=== PATIENT | female | born 1965 | race Caucasian/White ===

== ENCOUNTER 2017-10-26 17:20 | Emergency (ER) | payer OTHER, MEDICAID ==
[~2017-10-26 17:20] MED LIST: BUTACAP7; IBUP600T27; TRAZ100T2; VENL75CA78
[2017-10-26 17:35] VITALS: BP 170/82
[2017-10-26] MEDS ORDERED: IPRATROPIUM BROM 0.5 MG/2.5ML INH SOL NEB ONE (21:30)
[2017-10-26] MEDS ORDERED: ALBUTEROL SULF 2.5 MG/0.5ML(0.5%) NEB SOLN NEB ONE (21:30)
== END 2017-10-26 22:11 | disposition home or self-care (01) ==
LOC: EDBD 17:20 → ER 17:20
DX: J40 Bronchitis, not specified as acute or chronic (principal); Z90.49 Acquired absence of other specified parts of digestive tract
CPT/HCPCS: 71046; 94640

== ENCOUNTER 2017-10-31 12:40 | Emergency (ER) | payer OTHER, MEDICAID ==
[~2017-10-31] VITALS: Ht 157.5 cm; Wt 77.6 kg
[2017-10-31 15:09] VITALS: BP 136/84
[2017-10-31] MEDS ORDERED: PROMETHAZINE HCL 25 MG/ML 1ML IM ONE (15:45)
[2017-10-31] MEDS ORDERED: MEPERIDINE HCL (50 MG/ML) 1 ML VIAL IM ONE (15:45)
== END 2017-10-31 16:18 | disposition home or self-care (01) ==
LOC: ER 12:40
DX: G89.29 Other chronic pain (principal); M54.2 Cervicalgia; J45.909 Unspecified asthma, uncomplicated; M19.90 Unspecified osteoarthritis, unspecified site; Z90.49 Acquired absence of other specified parts of digestive tract
CPT/HCPCS: 96372; 99284; J2175; J2550

== ENCOUNTER 2017-12-15 21:05 | Emergency (ER) | payer OTHER, MEDICAID ==
[~2017-12-15] VITALS: Ht 162.6 cm; Wt 72.6 kg
[2017-12-16 01:11] LABS: Urine WBC None Seen /hpf (0 - 5)
[2017-12-16 01:29] LABS: Basophils # (auto) 0 uL; Eosinophils # (auto) 0.1 uL; Eosinophils % (auto) 2.5 % (0.0-7.0); Hematocrit 44.1 % (36.0-46.0); Hemoglobin 15.1 g/dL (12.2-16.2); Lymphocytes # (auto) 1.8 uL; Lymphocytes % (auto) 40.9 % (10.0-50.0); Mean Corpuscular Hemoglobin 31.6 pg (28.0-32.0); Mean Corpuscular Hgb Conc. 34.2 g/dL (32.0-36.0); Mean Corpuscular Volume 92.4 fL (80.0-100.0); Monocytes # (auto) 0.5 uL; Monocytes % (auto) 11.1 % (0.0-12.0); Neutrophils # (auto) 1.9 uL; Neutrophils % (auto) 44.5 % (37.0-80.0); Platelet Count (auto) 271 10^3/uL (140-450); Red Blood Cells 4.77 10^6/uL (4.0-5.20); Red Cell Distribution Width 14.1 % (11.8-14.3); White Blood Cell 4.3 10^3/uL (4.4-10.8)
[2017-12-16 01:40] LABS: Urine Bacteria NONE SEEN /hpf (None Seen); Urine Blood Negative /uL (Negative); Urine Specific Gravity 1.003 (1.001-1.035)
[2017-12-16 01:47] LABS: Albumin 4.1 g/dL (3.4-5.0); Calcium 9.8 mg/dL (8.5-10.1); Potassium 3.3 mmol/L (3.5-5.1)
[2017-12-16 01:49] LABS: BUN/Creatinine Ratio 17.3
[2017-12-16 01:53] LABS: Bilirubin, Total 1.2 mg/dL (0.2-1.0); Total Protein 7.5 g/dL (6.4-8.2)
[2017-12-16] MEDS ORDERED: LORazepam 2MG/ML-1ML VIAL IV ONE (02:30)
[2017-12-16] MEDS ORDERED: SODIUM CHLORIDE 0.9% 1,000 ML IV ONE (02:30)
[2017-12-16] MEDS ORDERED: NALBUPHINE HCL 10 MG/1ml INJECTION IV ONE (03:00)
[2017-12-16] MEDS ORDERED: ONDANSETRON HCL 4 MG/2 ML VIAL IV ONE (03:00)
[2017-12-16 03:17] VITALS: BP 152/84
== END 2017-12-16 05:14 | disposition home or self-care (01) ==
LOC: ER 21:05
DX: K58.1 Irritable bowel syndrome with constipation (principal); J45.909 Unspecified asthma, uncomplicated; M19.90 Unspecified osteoarthritis, unspecified site; F41.9 Anxiety disorder, unspecified; K21.9 Gastro-esophageal reflux disease without esophagitis; Z88.0 Allergy status to penicillin; Z79.82 Long term (current) use of aspirin; Z88.2 Allergy status to sulfonamides; Z90.49 Acquired absence of other specified parts of digestive tract; Z79.899 Other long term (current) drug therapy
CPT/HCPCS: 36415; 74176; 80053; 81001; 82150; 83690; 85025; 96361; 96374; 96375; 99285; J2060; J2300; J2405; J7030

== ENCOUNTER 2018-04-17 20:03 | Observation (INO) | payer OTHER, MEDICAID ==
[~2018-04-17] VITALS: Ht 162.6 cm; Wt 76.2 kg
[2018-04-17] MEDS ORDERED: ONDANSETRON HCL 4 MG/2 ML VIAL IV ONE (21:15)
[2018-04-17] MEDS ORDERED: MORPHINE SULF INJ 2 MG/ML SYRINGE 1ML IV ONE (21:15)
[2018-04-18] MEDS ORDERED: MORPHINE SULF INJ 2 MG/ML SYRINGE 1ML IV ONE (00:30)
[2018-04-18] MEDS ORDERED: ONDANSETRON HCL 4 MG/2 ML VIAL IV ONE ×2 (00:30→05:45)
[2018-04-18 00:41] LABS: Basophils # (auto) 0.1 uL; Eosinophils # (auto) 0.2 uL; Lymphocytes # (auto) 1.2 uL; Monocytes # (auto) 0.7 uL; Neutrophils # (auto) 3.2 uL; Nucleated Red Blood Cells % 0.1 %; White Blood Cell 5.5 10^3/uL (4.4-10.8)
[2018-04-18 00:43] LABS: Basophils % (auto) 2.1 % (0.0-2.0); Eosinophils % (auto) 4.4 % (0.0-7.0); Hematocrit 39.1 % (36.0-46.0); Hemoglobin 12.9 g/dL (12.2-16.2); Lymphocytes % (auto) 22.4 % (10.0-50.0); Mean Corpuscular Hemoglobin 32.3 pg (28.0-32.0); Mean Corpuscular Hgb Conc. 32.9 g/dL (32.0-36.0); Mean Corpuscular Volume 98.3 fL (80.0-100.0); Monocytes % (auto) 12.6 % (0.0-12.0); Neutrophils % (auto) 58.5 % (37.0-80.0); Platelet Count (auto) 463 10^3/uL (140-450); Red Blood Cells 3.98 10^6/uL (4.0-5.20); Red Cell Distribution Width 17.7 % (11.8-14.3)
[2018-04-18 01:02] LABS: Alanine Aminotransferase 31 U/L (13-56); Amylase 24 U/L (25-115); Anion Gap 8 (5-15); Aspartate Aminotransferase 34 U/L (15-37); BUN/Creatinine Ratio 10.8; Blood Alcohol < 3.0 mg/dL (0-5); Blood Urea Nitrogen 7 mg/dL (7-18); Calcium 8.6 mg/dL (8.5-10.1); Carbon Dioxide 27 mmol/L (21-32); Chloride 103 mmol/L (98-107); GFR African American 123 mL/min; GFR Non-African American 101 mL/min; Glucose 89 mg/dL (74-106); Lipase 93 U/L (73-393); Sodium 138 mmol/L (136-145)
[2018-04-18 01:04] LABS: Alkaline Phosphatase 160 U/L (45-117); Bilirubin, Total 0.5 mg/dL (0.2-1.0); Total Protein 7.1 g/dL (6.4-8.2)
[2018-04-18 02:36] VITALS: BP 130/83
[2018-04-18] MEDS ORDERED: KETOROLAC TROMETH 30 MG/ML 1ML VIAL IV ONE (05:45)
== END 2018-04-18 03:36 | disposition home or self-care (01) | DRG 103 ==
LOC: EDUNIT# 20:03 → EDBD 20:03 → ER 20:03 → OVERFLOW 20:04 → ER 04-18 03:36
PROVIDERS: ADMIT Emergency Medicine; ATTEND Emergency Medicine
DX: R51 Headache (principal); R10.11 Right upper quadrant pain; R11.2 Nausea with vomiting, unspecified; F20.9 Schizophrenia, unspecified; J45.909 Unspecified asthma, uncomplicated; K21.9 Gastro-esophageal reflux disease without esophagitis; F31.9 Bipolar disorder, unspecified; F41.9 Anxiety disorder, unspecified
CPT/HCPCS: 36415; 70450; 72125; 74176; 80053; 80320; 82140; 82150; 83690; 85025; 96374; 96375; 96376; 99285; G0378; J1885; J2270; J2405

== ENCOUNTER 2018-04-23 07:19 | Emergency (ER) | payer OTHER, MEDICAID ==
[~2018-04-23] VITALS: Ht 162.6 cm; Wt 76.2 kg
[2018-04-23 07:38] VITALS: BP 126/89
[2018-04-23] MEDS ORDERED: KETOROLAC TROMETH 60MG/2ML VIAL IM ONE (08:15)
== END 2018-04-23 09:21 | disposition home or self-care (01) ==
LOC: ER 07:19
DX: M46.46 Discitis, unspecified, lumbar region (principal); M25.551 Pain in right hip; M19.90 Unspecified osteoarthritis, unspecified site; K21.9 Gastro-esophageal reflux disease without esophagitis; F12.10 Cannabis abuse, uncomplicated; Z90.49 Acquired absence of other specified parts of digestive tract; Z88.0 Allergy status to penicillin; Z88.2 Allergy status to sulfonamides; Z88.6 Allergy status to analgesic agent
CPT/HCPCS: 73502; 96372; 99284; J1885

== ENCOUNTER 2018-05-02 07:26 | Emergency (ER) | payer OTHER, MEDICAID ==
[~2018-05-02] VITALS: Ht 162.6 cm; Wt 75.7 kg
[2018-05-02 07:33] VITALS: BP 153/105
[2018-05-02] MEDS ORDERED: PROMETHAZINE HCL 25 MG/ML 1ML IM ONE (08:15)
[2018-05-02] MEDS ORDERED: MEPERIDINE HCL (50 MG/ML) 1 ML VIAL IM ONE (08:15)
== END 2018-05-02 09:00 | disposition home or self-care (01) ==
LOC: ER 07:26
DX: R51 Headache (principal); F12.10 Cannabis abuse, uncomplicated; M19.90 Unspecified osteoarthritis, unspecified site; J45.909 Unspecified asthma, uncomplicated; K21.9 Gastro-esophageal reflux disease without esophagitis
CPT/HCPCS: 96372; 99284; J2175; J2550

== ENCOUNTER 2018-05-04 09:54 | Emergency (ER) | payer OTHER, MEDICAID ==
[~2018-05-04] VITALS: Ht 162.6 cm; Wt 75.7 kg
[2018-05-04 10:12] VITALS: BP 151/98
[2018-05-04] MEDS: KETOROLAC TROMETH 60MG/2ML VIAL IM ONE ×2 (13:53→14:02)
== END 2018-05-04 14:42 | disposition home or self-care (01) ==
LOC: ER 09:54
DX: R51 Headache (principal); J45.909 Unspecified asthma, uncomplicated; M19.90 Unspecified osteoarthritis, unspecified site; K21.9 Gastro-esophageal reflux disease without esophagitis; F10.10 Alcohol abuse, uncomplicated; F41.9 Anxiety disorder, unspecified; F32.9 Major depressive disorder, single episode, unspecified; F12.10 Cannabis abuse, uncomplicated; Z90.49 Acquired absence of other specified parts of digestive tract
CPT/HCPCS: 96372; 99283; J1885

== ENCOUNTER 2018-05-10 23:45 | Emergency (ER) | payer OTHER, MEDICAID ==
[~2018-05-10] VITALS: Ht 162.6 cm; Wt 74.8 kg
[2018-05-11 00:30] LABS: Basophils # (auto) 0 uL; Basophils % (auto) 0.6 % (0.0-2.0); Eosinophils # (auto) 0.1 uL; Eosinophils % (auto) 2.1 % (0.0-7.0); Hematocrit 38.7 % (36.0-46.0); Hemoglobin 13.3 g/dL (12.2-16.2); Lymphocytes # (auto) 1.5 uL; Lymphocytes % (auto) 20.9 % (10.0-50.0); Mean Corpuscular Hemoglobin 33.7 pg (28.0-32.0); Mean Corpuscular Hgb Conc. 34.3 g/dL (32.0-36.0); Mean Corpuscular Volume 98.3 fL (80.0-100.0); Monocytes # (auto) 0.5 uL; Monocytes % (auto) 7.1 % (0.0-12.0); Neutrophils # (auto) 4.8 uL; Neutrophils % (auto) 69.3 % (37.0-80.0); Platelet Count (auto) 271 10^3/uL (140-450); Red Blood Cells 3.93 10^6/uL (4.0-5.20); Red Cell Distribution Width 14.8 % (11.8-14.3); White Blood Cell 6.9 10^3/uL (4.4-10.8)
[2018-05-11 00:44] LABS: BUN/Creatinine Ratio 14.3; Calcium 8.5 mg/dL (8.5-10.1); Potassium 3.5 mmol/L (3.5-5.1)
[2018-05-11] MEDS ORDERED: ONDANSETRON HCL 4 MG/2 ML VIAL IV ONE ×2 (01:15→04:15)
[2018-05-11] MEDS ORDERED: HYDROmorphone HCL 2 MG/ML VL IV ONE (01:15)
[2018-05-11] MEDS ORDERED: SODIUM CHLORIDE 0.9% 3,000 ML IV ONE (02:30)
[2018-05-11] MEDS ORDERED: PROMETHAZINE HCL 25 MG/ML 1ML IV ONE (04:15)
[2018-05-11 05:00] VITALS: BP 137/77
== END 2018-05-11 06:19 | disposition home or self-care (01) ==
LOC: EDBD 23:45 → ER 23:51
DX: F10.129 Alcohol abuse with intoxication, unspecified (principal); E86.0 Dehydration; J45.909 Unspecified asthma, uncomplicated; K21.9 Gastro-esophageal reflux disease without esophagitis; F12.10 Cannabis abuse, uncomplicated; Z90.49 Acquired absence of other specified parts of digestive tract; Z88.0 Allergy status to penicillin; Z88.2 Allergy status to sulfonamides; Z88.8 Allergy status to other drugs, medicaments and biological substances; Z79.82 Long term (current) use of aspirin; Z79.891 Long term (current) use of opiate analgesic; Z79.899 Other long term (current) drug therapy
CPT/HCPCS: 36415; 70450; 80048; 80320; 85025; 96361; 96374; 96375; 99285; J1170; J2405; J2550; J7030

== ENCOUNTER 2018-05-22 11:20 | Emergency (ER) | payer MEDICAID, OTHER ==
[~2018-05-22] VITALS: Ht 162.6 cm; Wt 75.3 kg
[2018-05-22 12:26] VITALS: BP 137/81
[2018-05-22] MEDS ORDERED: LACTULOSE 20Gm/30ML SOLN PO ONE (13:15)
== END 2018-05-22 13:43 | disposition home or self-care (01) ==
LOC: ER 11:20
DX: K59.00 Constipation, unspecified (principal); J45.909 Unspecified asthma, uncomplicated; M19.90 Unspecified osteoarthritis, unspecified site; K21.9 Gastro-esophageal reflux disease without esophagitis; Z90.49 Acquired absence of other specified parts of digestive tract; Z88.0 Allergy status to penicillin; Z88.1 Allergy status to other antibiotic agents; Z88.2 Allergy status to sulfonamides; Z88.8 Allergy status to other drugs, medicaments and biological substances; Z79.899 Other long term (current) drug therapy
CPT/HCPCS: 74018

== ENCOUNTER 2018-05-25 08:08 | Emergency (ER) | payer OTHER ==
[~2018-05-25] VITALS: Ht 157.5 cm; Wt 69.4 kg
[2018-05-25 08:23] VITALS: BP 162/112
[2018-05-25] MEDS ORDERED: HYDROcodone-ACET 10/325MG TAB PO ONE (08:30)
[2018-05-25] MEDS ORDERED: LORazepam 0.5 MG TAB PO ONE (08:30)
[2018-05-25] MEDS ORDERED: ONDANSETRON ODT 4 MG TAB PO ONE (08:45)
== END 2018-05-25 09:41 | disposition home or self-care (01) ==
LOC: ER 08:08 → EDBD 08:08 → EDSEX 08:08 → ER 09:41
DX: R51 Headache (principal); I10 Essential (primary) hypertension; F41.9 Anxiety disorder, unspecified; F32.9 Major depressive disorder, single episode, unspecified; J45.909 Unspecified asthma, uncomplicated; K21.9 Gastro-esophageal reflux disease without esophagitis; F20.9 Schizophrenia, unspecified; Z90.49 Acquired absence of other specified parts of digestive tract; Z88.0 Allergy status to penicillin; Z88.1 Allergy status to other antibiotic agents; Z88.2 Allergy status to sulfonamides; Z88.8 Allergy status to other drugs, medicaments and biological substances
CPT/HCPCS: 70450; 99284; Q0162

== ENCOUNTER 2018-05-31 14:10 | Emergency (ER) | payer OTHER ==
[~2018-05-31] VITALS: Ht 162.6 cm; Wt 70.8 kg
[2018-05-31 14:17] VITALS: BP 125/83
== END 2018-05-31 17:26 | disposition home or self-care (01) ==
LOC: ER 14:13
DX: F44.9 Dissociative and conversion disorder, unspecified (principal); M19.90 Unspecified osteoarthritis, unspecified site; J45.909 Unspecified asthma, uncomplicated; K21.9 Gastro-esophageal reflux disease without esophagitis; Z90.49 Acquired absence of other specified parts of digestive tract; Z88.0 Allergy status to penicillin; Z88.1 Allergy status to other antibiotic agents; Z88.2 Allergy status to sulfonamides; Z88.8 Allergy status to other drugs, medicaments and biological substances; Z79.82 Long term (current) use of aspirin; Z79.899 Other long term (current) drug therapy

== ENCOUNTER 2018-06-06 09:39 | Emergency (ER) | payer OTHER ==
[~2018-06-06] VITALS: Ht 162.6 cm; Wt 63.5 kg
[2018-06-06 09:55] VITALS: BP 128/69
[2018-06-06] MEDS ORDERED: LORazepam 2MG/ML-1ML VIAL IV ONE (10:00)
[2018-06-06] MEDS ORDERED: SODIUM CHLORIDE 0.9% 1,000 ML IV ONE (10:00)
[2018-06-06 10:30] LABS: Basophils # (auto) 0.1 uL; Basophils % (auto) 1.1 % (0.0-2.0); Eosinophils # (auto) 0.1 uL; Eosinophils % (auto) 2.3 % (0.0-7.0); Hematocrit 43.1 % (36.0-46.0); Hemoglobin 13.8 g/dL (12.2-16.2); Lymphocytes # (auto) 1.2 uL; Lymphocytes % (auto) 23.5 % (10.0-50.0); Mean Corpuscular Hemoglobin 31.4 pg (28.0-32.0); Mean Corpuscular Volume 98.1 fL (80.0-100.0); Monocytes # (auto) 0.3 uL; Monocytes % (auto) 6.2 % (0.0-12.0); Neutrophils # (auto) 3.5 uL; Neutrophils % (auto) 66.9 % (37.0-80.0); Nucleated Red Blood Cells % 0.1 %; Platelet Count (auto) 296 10^3/uL (140-450); Red Blood Cells 4.39 10^6/uL (4.0-5.20); Red Cell Distribution Width 13.8 % (11.8-14.3); White Blood Cell 5.2 10^3/uL (4.4-10.8)
[2018-06-06 10:56] LABS: Salicylate < 1.7 mg/dL (2.8-20.0)
[2018-06-06 10:57] LABS: Albumin 3.9 g/dL (3.4-5.0); Anion Gap 11 (5-15); Blood Urea Nitrogen 9 mg/dL (7-18); Calcium 9.2 mg/dL (8.5-10.1); Carbon Dioxide 21 mmol/L (21-32); Chloride 110 mmol/L (98-107); Glucose 84 mg/dL (74-106); Potassium 3.3 mmol/L (3.5-5.1); Sodium 142 mmol/L (136-145)
[2018-06-06 10:59] LABS: Alanine Aminotransferase 54 U/L (13-56); Aspartate Aminotransferase 38 U/L (15-37); BUN/Creatinine Ratio 11.3; GFR African American 96 mL/min; GFR Non-African American 80 mL/min
[2018-06-06 11:02] LABS: Acetaminophen < 2.0 ug/mL (10-30); Alkaline Phosphatase 84 U/L (45-117); Bilirubin, Total 0.6 mg/dL (0.2-1.0); Blood Alcohol < 3.0 mg/dL (0-5); Total Protein 7.4 g/dL (6.4-8.2)
[2018-06-06] MEDS ORDERED: POTASSIUM EFFERVESENT TAB 25 MEQ PO ONE (12:00)
== END 2018-06-06 13:27 | disposition left against medical advice (07) ==
LOC: EDBD 09:39 → ER 09:40
DX: F41.9 Anxiety disorder, unspecified (principal); F32.9 Major depressive disorder, single episode, unspecified; F20.9 Schizophrenia, unspecified; F10.10 Alcohol abuse, uncomplicated; F12.10 Cannabis abuse, uncomplicated; J45.909 Unspecified asthma, uncomplicated; K21.9 Gastro-esophageal reflux disease without esophagitis; Z90.49 Acquired absence of other specified parts of digestive tract; Z88.0 Allergy status to penicillin; Z88.1 Allergy status to other antibiotic agents; Z88.6 Allergy status to analgesic agent; Z88.2 Allergy status to sulfonamides
CPT/HCPCS: 36415; 71045; 80053; 80320; 80329; 85025; 96374; 99285; J2060

== ENCOUNTER 2018-06-06 22:16 | Emergency (ER) | payer OTHER ==
[~2018-06-06] VITALS: Ht 162.6 cm; Wt 78.9 kg
[2018-06-06 22:19] VITALS: BP 140/90
[2018-06-06 22:53] LABS: Basophils # (auto) 0.1 uL; Eosinophils # (auto) 0.1 uL; Eosinophils % (auto) 1.7 % (0.0-7.0); Hematocrit 41.8 % (36.0-46.0); Hemoglobin 13.6 g/dL (12.2-16.2); Lymphocytes # (auto) 1.5 uL; Lymphocytes % (auto) 28.6 % (10.0-50.0); Mean Corpuscular Hgb Conc. 32.5 g/dL (32.0-36.0); Mean Corpuscular Volume 98.3 fL (80.0-100.0); Monocytes # (auto) 0.5 uL; Monocytes % (auto) 9.1 % (0.0-12.0); Neutrophils # (auto) 3.2 uL; Neutrophils % (auto) 59.6 % (37.0-80.0); Nucleated Red Blood Cells % 0.1 %; Platelet Count (auto) 297 10^3/uL (140-450); Red Blood Cells 4.25 10^6/uL (4.0-5.20); Red Cell Distribution Width 13.7 % (11.8-14.3); White Blood Cell 5.4 10^3/uL (4.4-10.8)
[2018-06-06 23:08] LABS: Anion Gap 12 (5-15); BUN/Creatinine Ratio 14.9; Blood Urea Nitrogen 11 mg/dL (7-18); Calcium 9.2 mg/dL (8.5-10.1); Carbon Dioxide 21 mmol/L (21-32); Chloride 108 mmol/L (98-107); GFR African American 106 mL/min; GFR Non-African American 87 mL/min; Glucose 71 mg/dL (74-106); Potassium 3.7 mmol/L (3.5-5.1); Sodium 141 mmol/L (136-145)
[2018-06-06 23:20] LABS: Alanine Aminotransferase 58 U/L (13-56); Alkaline Phosphatase 88 U/L (45-117); Aspartate Aminotransferase 42 U/L (15-37); Bilirubin, Total 0.5 mg/dL (0.2-1.0); Total Protein 7.8 g/dL (6.4-8.2)
== END 2018-06-07 01:49 | disposition left against medical advice (07) ==
LOC: EDBD 22:16 → ER 22:27
DX: F10.231 Alcohol dependence with withdrawal delirium (principal); Z53.21 Procedure and treatment not carried out due to patient leaving prior to being seen by health care provider
CPT/HCPCS: 36415; 80053; 84484; 85025

== ENCOUNTER 2019-03-28 18:55 | Emergency (ER) | payer OTHER, MEDICAID ==
[~2019-03-28] VITALS: Ht 162.6 cm; Wt 81.6 kg
[2019-03-28 19:45] VITALS: BP 126/90
== END 2019-03-29 03:38 | disposition left against medical advice (07) ==
LOC: ER 18:58
DX: R51 Headache (principal); Z53.21 Procedure and treatment not carried out due to patient leaving prior to being seen by health care provider

== ENCOUNTER 2022-06-21 06:24 | Emergency (ER) | payer OTHER, MEDICAID ==
[~2022-06-21] VITALS: Ht 162.6 cm; Wt 68.3 kg
[~2022-06-21 06:24] MED LIST changes: -TRAZ100T2; +TRAZ100T3
[2022-06-21] MEDS ORDERED: ONDANSETRON ODT 4 MG TAB PO ONE ×2 (06:34→06:45)
[2022-06-21 07:42] LABS: Basophils # (auto) 0.1 10 ^3/uL (0-0.2); Basophils % (auto) 1.1 % (0.0-2.0); Eosinophils # (auto) 0 10 ^3/uL (0-0.8); Eosinophils % (auto) 0.1 % (0.0-7.0); Hematocrit 43.2 % (36.0-46.0); Hemoglobin 14.2 g/dL (12.2-16.2); Lymphocytes % (auto) 16.1 % (10.0-50.0); Mean Corpuscular Hemoglobin 28.9 pg (28.0-32.0); Mean Corpuscular Volume 87.5 fL (80.0-100.0); Neutrophils % (auto) 74.7 % (37.0-80.0); Nucleated Red Blood Cells % 0.1 %; Red Blood Cells 4.93 10^6/uL (4.0-5.20); Red Cell Distribution Width 14.4 % (11.8-14.3); White Blood Cell 12.1 10^3/uL (4.4-10.8)
[2022-06-21 07:59] LABS: Albumin 4.5 g/dL (3.4-5.0); Calcium 10.2 mg/dL (8.5-10.1); Potassium 3.2 mmol/L (3.5-5.1)
[2022-06-21] MEDS ORDERED: ALUM & MAG HYDROX-SIMETH LIQ(MAALOX) 30 ML PO ONE (08:00)
[2022-06-21] MEDS ORDERED: FAMOTIDINE (10MG/ML) 2ML VL IV ONE (08:00)
[2022-06-21] MEDS ORDERED: ONDANSETRON HCL 4 MG/2 ML VIAL IV ONE (08:00)
[2022-06-21] MEDS ORDERED: LIDOCAINE VISCOUS 2% 15ML UD PO ONE (08:00)
[2022-06-21] MEDS ORDERED: SODIUM CHLORIDE 0.9% 1,000 ML IV ONE (08:00)
[2022-06-21 08:02] LABS: BUN/Creatinine Ratio 9.4; Bilirubin, Total 0.8 mg/dL (0.2-1.0)
[2022-06-21] MEDS ORDERED: POTASSIUM EFFERVESENT TAB 25 MEQ PO ONE (08:45)
[2022-06-21] MEDS ORDERED: METOCLOPRAMIDE HCL 5MG/ml INJ 2ml VIAL IV ONE (09:45)
[2022-06-21] MEDS ORDERED: KETOROLAC TROMETH 30 MG/ML 1ML VIAL IV ONE (09:45)
[2022-06-21] MEDS ORDERED: diphenhdrAMINE HCL 50 MG/1 ML VL IV ONE (09:45)
[2022-06-21] MEDS ORDERED: HALOPERIDOL LACTATE 5 MG/ML INJ VIAL IV ONE (09:45)
[2022-06-21] MEDS ORDERED: MORPHINE SULFATE INJ 2 MG/ml SYRG IV ONE (09:45)
[2022-06-21] MEDS ORDERED: DexAMETHasone SOD PHOS 10MG/1ML VIAL INJ IV ONE (09:45)
[2022-06-21 12:22] VITALS: BP 159/78
[2022-06-21] MEDS: MAGNESIUM SULFATE 1GM/100ML 100 ML IV SCH ×2 (12:23→12:24)
[2022-06-21 12:30] LABS: Urine Bacteria NONE SEEN /hpf (None Seen); Urine Blood Negative /uL (Negative); Urine Hyaline Cast MOD /lpf (0 - 2); Urine Mucus FEW (None Seen); Urine Specific Gravity 1.026 (1.001-1.035); Urine WBC 2 /hpf (0 - 5)
== END 2022-06-21 18:51 | disposition home or self-care (01) ==
LOC: ER 06:24
DX: G43.909 Migraine, unspecified, not intractable, without status migrainosus (principal); F12.10 Cannabis abuse, uncomplicated; J45.909 Unspecified asthma, uncomplicated; K21.9 Gastro-esophageal reflux disease without esophagitis; I10 Essential (primary) hypertension; Z90.49 Acquired absence of other specified parts of digestive tract; Z32.02 Encounter for pregnancy test, result negative
CPT/HCPCS: 36415; 70450; 80053; 81001; 81025; 83735; 85025; 93005; 96361; 96365; 96375; 99285; J1100; J1200; J1630; J1885; J2270; J2405; J2765; J3475; J3490; J7030; Q0162

== ENCOUNTER 2023-03-17 14:17 | Emergency (ER) | payer OTHER, MEDICAID ==
[~2023-03-17] VITALS: Ht 162.6 cm; Wt 70.0 kg
[~2023-03-17 14:17] MED LIST changes: +IBUP-1454; -IBUP600T27; +TRAZ-228; -TRAZ100T3
[2023-03-17] MEDS ORDERED: SODIUM CHLORIDE 0.9% 1,000 ML IV ONE (14:45)
[2023-03-17 15:28] LABS: Basophils # (auto) 0.1 10 ^3/uL (0-0.2); Basophils % (auto) 0.4 % (0.0-2.0); Eosinophils # (auto) 0.1 10 ^3/uL (0-0.8); Eosinophils % (auto) 0.7 % (0.0-7.0); Hematocrit 38.7 % (36.0-46.0); Hemoglobin 12.7 g/dL (12.2-16.2); Lymphocytes # (auto) 0.9 10 ^3/uL (0.4-5.4); Mean Corpuscular Hemoglobin 28.4 pg (28.0-32.0); Mean Corpuscular Hgb Conc. 32.8 g/dL (32.0-36.0); Mean Corpuscular Volume 86.6 fL (80.0-100.0); Monocytes # (auto) 1.1 10 ^3/uL (0-1.3); Monocytes % (auto) 6.1 % (0.0-12.0); Neutrophils # (auto) 16.4 10 ^3/uL (1.6-8.6); Neutrophils % (auto) 87.8 % (37.0-80.0); Red Blood Cells 4.47 10^6/uL (4.0-5.20); Red Cell Distribution Width 17.9 % (11.8-14.3); White Blood Cell 18.6 10^3/uL (4.4-10.8)
[2023-03-17 15:46] LABS: Albumin 3.8 g/dL (3.4-5.0); Anion Gap 9 (5-15); Blood Alcohol < 3.0 mg/dL (<10); Blood Urea Nitrogen 18 mg/dL (7-18); Calcium 8.9 mg/dL (8.5-10.1); Carbon Dioxide 20 mmol/L (21-32); Chloride 102 mmol/L (98-107); Glucose 181 mg/dL (74-106); Potassium 3.6 mmol/L (3.5-5.1); Salicylate < 1.7 mg/dL (2.8-20.0); Sodium 131 mmol/L (136-145)
[2023-03-17 15:50] LABS: Alanine Aminotransferase 53 U/L (13-56); Alkaline Phosphatase 208 U/L (45-117); Aspartate Aminotransferase 26 U/L (15-37); BUN/Creatinine Ratio 16.1 (10.0-20.0); Bilirubin, Total 0.8 mg/dL (0.2-1.0); GFR African American 64 mL/min; GFR Non-African American 53 mL/min; Total Protein 7.5 g/dL (6.4-8.2)
[2023-03-17 16:12] LABS: Acetaminophen < 2.0 ug/mL (10-30)
[2023-03-17] MEDS ORDERED: LEVO500T91 PO (16:27)
[2023-03-17 16:56] VITALS: BP 128/85
== END 2023-03-17 17:59 | disposition home or self-care (01) ==
LOC: EDSEX 14:17 → EDBD 14:17 → ER 14:17
DX: T50.901A Poisoning by unspecified drugs, medicaments and biological substances, accidental (unintentional), initial encounter (principal); D72.829 Elevated white blood cell count, unspecified; F41.9 Anxiety disorder, unspecified; M19.90 Unspecified osteoarthritis, unspecified site; J45.909 Unspecified asthma, uncomplicated; F32.9 Major depressive disorder, single episode, unspecified; K21.9 Gastro-esophageal reflux disease without esophagitis; I10 Essential (primary) hypertension; F20.9 Schizophrenia, unspecified; G43.909 Migraine, unspecified, not intractable, without status migrainosus; F15.90 Other stimulant use, unspecified, uncomplicated; F10.90 Alcohol use, unspecified, uncomplicated; Z88.0 Allergy status to penicillin; Z90.49 Acquired absence of other specified parts of digestive tract; Z88.1 Allergy status to other antibiotic agents; Z88.2 Allergy status to sulfonamides; Z88.8 Allergy status to other drugs, medicaments and biological substances; Z79.1 Long term (current) use of non-steroidal anti-inflammatories (NSAID); Z79.82 Long term (current) use of aspirin; Z79.899 Other long term (current) drug therapy; Y90.0 Blood alcohol level of less than 20 mg/100 ml; Y92.89 Other specified places as the place of occurrence of the external cause
CPT/HCPCS: 36415; 70450; 80053; 80320; 80329; 84484; 85025; 93005; 96360; 99284; J7030

== ENCOUNTER 2023-08-07 06:58 | Emergency (ER) | payer OTHER, MEDICAID ==
[~2023-08-07] VITALS: Ht 160 cm; Wt 78.8 kg
[~2023-08-07 06:58] MED LIST changes: +LEVO500T91 PO
[2023-08-07 07:42] VITALS: BP 122/82; PULSE 127; RESP 20; TEMP 98.3; O2SAT 99
[2023-08-07] MEDS ORDERED: KETOROLAC TROMETH 60MG/2ML VIAL IM ONE (08:45)
[2023-08-07] MEDS ORDERED: BUTA-281 OR (09:15)
== END 2023-08-07 09:12 | disposition home or self-care (01) ==
LOC: ER 06:58
DX: G43.909 Migraine, unspecified, not intractable, without status migrainosus (principal); J45.909 Unspecified asthma, uncomplicated; K21.9 Gastro-esophageal reflux disease without esophagitis; I10 Essential (primary) hypertension; Z90.49 Acquired absence of other specified parts of digestive tract
CPT/HCPCS: 70450; 93005; 96372; 99285; J1885

== ENCOUNTER 2024-05-16 13:02 | Emergency (ER) | payer OTHER, MEDICAID ==
[~2024-05-16] VITALS: Ht 160 cm; Wt 75.4 kg
[~2024-05-16 13:02] MED LIST changes: +BUTA-281 OR; +BUTA1CAP31; -BUTACAP7
[2024-05-16 13:12] VITALS: BP 110/95; PULSE 140; RESP 20; O2SAT 100
[2024-05-16] MEDS ORDERED: SODIUM CHLORIDE 0.9% 1,000 ML IV ONE (13:15)
[2024-05-16] MEDS ORDERED: PIPERACILLIN-TAZOB 3.375GM 100 ML IV ONE (13:15)
[2024-05-16] MEDS ORDERED: VANCOMYCIN 1GM/200ML 200 ML IV ONE (13:15)
== END 2024-05-16 14:30 | disposition left against medical advice (07) ==
LOC: ER 13:02 → EDBD 13:02 → ER 14:30
DX: T81.40XA Infection following a procedure, unspecified, initial encounter (principal); I10 Essential (primary) hypertension; F41.9 Anxiety disorder, unspecified; F32.9 Major depressive disorder, single episode, unspecified; F20.9 Schizophrenia, unspecified; M19.90 Unspecified osteoarthritis, unspecified site; J45.909 Unspecified asthma, uncomplicated; K21.9 Gastro-esophageal reflux disease without esophagitis; F10.90 Alcohol use, unspecified, uncomplicated; F15.90 Other stimulant use, unspecified, uncomplicated; Z98.890 Other specified postprocedural states; Z88.0 Allergy status to penicillin; Z88.8 Allergy status to other drugs, medicaments and biological substances; Z79.899 Other long term (current) drug therapy; Y92.89 Other specified places as the place of occurrence of the external cause; Y90.0 Blood alcohol level of less than 20 mg/100 ml
CPT/HCPCS: 87205